=== PATIENT | female | born 1985 | race American Indian/Alaskan Native ===

== ENCOUNTER 2019-03-10 09:39 | Outpatient (CLI) | payer OTHER ==
[2019-03-10 10:38] VITALS: BP 120/74
[2019-03-10] MEDS ORDERED: LACTATED RINGERS 1,000 ML IV SCH (12:00)
[2019-03-10 12:42] LABS: Bilirubin,Urine NEG (Negative); Blood,Urine NEG (Negative); Color,Urine Straw (Yellow); Protein,Urine <15 mg/dL mg/dL (Negative); Urobilinogen,Urine < 2.0 mg/dL (<2.0); WBC,Urine < 1.0 /HPF (0.0-6.0)
[2019-03-10 13:34] LABS: Amphetamine Screen,Urine PRESUMPTIVE NEGATIVE; Benzodiazepines Screen,Urine PRESUMPTIVE NEGATIVE; Cannabinoid Screen,Urine PRESUMPTIVE NEGATIVE; Cocaine Screen,Urine PRESUMPTIVE NEGATIVE; Methadone Screen,Urine PRESUMPTIVE NEGATIVE; Opiate Screen,Urine PRESUMPTIVE NEGATIVE
== END 2019-03-10 13:28 | disposition home or self-care (01) ==
LOC: TRG 09:39
PROVIDERS: ATTEND Obstetrics & Gynecology
DX: O26.893 Other specified pregnancy related conditions, third trimester (principal); R10.9 Unspecified abdominal pain; Z3A.33 33 weeks gestation of pregnancy
CPT/HCPCS: 59025; 80307; 81001

== ENCOUNTER 2019-04-25 13:22 | Observation (INO) | payer OTHER ==
[2019-04-25] MEDS ORDERED: LACTATED RINGERS 1,000 ML ONE (14:43)
[2019-04-25] MEDS ORDERED: LACTATED RINGERS 1,000 ML IV SCH (16:00)
[2019-04-25 16:14] LABS: Bilirubin,Urine NEG (Negative); Blood,Urine NEG (Negative); Color,Urine Yellow (Yellow); Mucus,Urine FEW /HPF; Urobilinogen,Urine < 2.0 mg/dL (<2.0); WBC,Urine < 1.0 /HPF (0.0-6.0)
[2019-04-25 16:37] VITALS: BP 125/79
--- NOTE | 2019-04-25 18:19 | Ultrasound Report ---
ULTRASOUND OBSTETRIC Indication: being wellness Findings: Exam is limited There is a single, living intrauterine in cephalic presentation.. BARBARA 20 cm heart rate is 118 beats per minute. The ovaries are normal. There is no free fluid. Impression: Single, living intrauterine with BARBARA of 20 cm Signer Name: Urbano Ramey MD Signed: 04/25/2019 6:15 PM Workstation Name: [email or web address]
--- NOTE | 2019-04-25 18:32 | Ultrasound Report ---
ULTRASOUND OBSTETRIC LIMITED ULTRASOUND BIOPHYSICAL PROFILE INDICATION / CLINICAL INFORMATION: being wellness. COMPARISON: None available. FINDINGS: BREATHING MOVEMENT = 2 GROSS BODY MOVEMENT = 2 TONE = 2 QUALITATIVE AMNIOTIC FLUID VOLUME = 2 TOTAL BIOPHYSICAL SCORE = 8/8 AMNIOTIC FLUID INDEX (cm) = 20.0 HEART RATE (beats per minute): 136 ADDITIONAL FINDINGS: None. IMPRESSION: 1. Biophysical Score = 8/8 Signer Name: Nilesh Monge MD Signed: 04/25/2019 6:28 PM Workstation Name: [id number]
== END 2019-04-25 18:30 | disposition home or self-care (01) ==
LOC: INTOOBSV 13:22 → APU 13:22
PROVIDERS: ADMIT Obstetrics & Gynecology; ATTEND Obstetrics & Gynecology
DX: Z34.83 Encounter for supervision of other normal pregnancy, third trimester (principal); Z3A.00 Weeks of gestation of pregnancy not specified
CPT/HCPCS: 76815; 76819; 81001; G0378; G0379; J7120